=== PATIENT | female | born 1990 ===

== ENCOUNTER 2019-10-31 11:59 | Day surgery (SDC) | payer SELFPAY ==
--- NOTE | 2019-10-31 12:08 | EDM.PDOC ---
ED HPI GENERAL MEDICAL PROBLEM - General Chief Complaint: Abdominal Pain Stated Complaint: POSSIBLE APPENDICITIS Time Seen by Provider: 10/31/19 12:03 Source of Information: Reports: Patient History Limitations: Reports: No Limitations - History of Present Illness INITIAL COMMENTS - FREE TEXT/NARRATIVE: HISTORY AND PHYSICAL: History of present illness: Patient is a 29-year-old female who presents to the emergency room with complaints of generalized abdominal pain that started last evening. She woke up this morning with increased pain and tenderness to the right lower quadrant. She has had nausea and vomiting associated with this. Initially she thought she could had been constipated but did have a normal bowel movement this morning. Patient denies any fever, chills, headache, change in vision, syncope or near syncope. Denies any chest pain, back pain, shortness of breath or cough. Denies any vaginal bleeding/discharge, diarrhea, constipation or dysuria. Has not noted any blood in urine or stool. Denies any chance of . Patient has been eating and drinking appropriately. No recent travel, other family members in the house are not ill. Review of systems: As per history of present illness and below otherwise all systems reviewed and negative. Past medical history: As per history of present illness and as reviewed below otherwise noncontributor y. Surgical history: As per history of present illness and as reviewed below otherwise noncontributory. Social history: See social history for further information Family history: As per history of present illness and as reviewed below otherwise noncontributory. Physical exam: General: Well-developed and well-nourished 29-year-old female. Alert and oriented. Nontoxic-appearing and in no acute distress. Vital signs are stable and have been reviewed by me. HEENT: Atraumatic, normocephalic, pupils equal and reactive bilaterally, negative for conjunctival pallor or scleral icterus, mucous membranes moist, TMs normal bilaterally, throat clear, neck supple, nontender, trachea midline. No drooling or trismus noted. No meningeal signs. No hot potato voice noted. Lungs: Clear to auscultation, breath sounds equal bilaterally, chest nontender. Heart: S1S2, regular rate and rhythm without overt murmur Abdomen: Soft, nondistended, generalized tenderness in all 4 quadrants. Does have rebound tenderness in the right lower quadrant. Negative for masses or hepatosplenomegaly. Negative for costovertebral tenderness. Pelvis: Stable nontender. Skin: Intact, warm, dry. No lesions or rashes noted. Extremities: Atraumatic, moves all extremities per self without difficulty or deficits, negative for cords or calf pain. Neurovascular unremarkable. Neuro: Awake, alert, oriented. Cranial nerves II through XII unremarkable. Cerebellum unremarkable. Motor and sensory unremarkable throughout. Exam nonfocal. Notes: Mildly prominent size of the appendix measuring 1.1 cm. Minimal inflammatory changes are seen around the portion of the appendix correlate with appendicitis. Appendicolith is felt to be present. Small amount of fluid within [id number] most likely physiologic. She does have a leukocytosis of 18. The general surgeon, , has been consulted on this case. 1415: Dr Hernandez here to evaluate patient. Requests Mefoxin 2gm IV. Patient to same day surgery -pending surgery with Mary Diagnostics: CBC, CMP, UA, urine , lipase, CT abdomen and pelvis Therapeutics: IV fluid, Zofran, morphine, Mefoxin Impression: Appendicitis Plan: To OR for surgery Definitive disposition and diagnosis as appropriate pending reevaluation and review of above. abdomen Pain Score (Numeric/FACES): 8 - Related Data Allergies Allergy/AdvReac Type Severity Reaction Status Date / Time codeine Allergy Rash Verified 10/31/19 12:09 Home Meds: Home Meds Calcium Carbonate [Tums] 1 tab.chew CHEW ASDIRECTED PRN 10/31/19 [History] ED ROS GENERAL - Review of Systems Review Of Systems: Comprehensive ROS is negative, except as noted in HPI. ED EXAM, RENAL/ - Physical Exam Exam: See Below (See dictation) Course - Vital Signs Last Recorded V/S: Last Vital Signs Temp 97.7 F 10/31/19 13:38 Pulse 98 10/31/19 13:38 Resp 14 10/31/19 13:38 BP 104/62 10/31/19 13:38 Pulse Ox 100 10/31/19 13:38 - Orders/Labs/Meds Orders: Active Orders 24 hr Category Date Time Status Patient Status [ADT] Stat ADT 10/31/19 14:08 Active Verify Patient Consent Obtain [RC] ASDIRECTED Care 10/31/19 15:00 Active Lactated Ringers [Ringers, Lactated] 1,000 ml Med 10/31/19 15:00 Active IV ASDIRECTED Medication Orders Lactated Ringer's (Ringers, Lactated) 1,000 mls @ 150 mls/hr IV ASDIRECTED VALENTIN Labs: Laboratory Tests 10/31/19 10/31/19 10/31/19 Range/Units 12:12 12:12 12:27 WBC 18.32 H (4.0-11.0) K/uL RBC 4.26 L (4.30-5.90) M/uL Hgb 12.6 (12.0-16.0) g/dL Hct 38.2 (36.0-46.0) % MCV 89.7 (80.0-98.0) fL MCH 29.6 (27.0-32.0) pg MCHC 33.0 (31.0-37.0) g/dL RDW Std Deviation 41.3 (28.0-62.0) fl RDW Coeff of Indra 13 (11.0-15.0) % Plt Count 267 (150-400) K/uL MPV 10.70 (7.40-12.00) fL Neut % (Auto) 91.3 H (48.0-80.0) % Lymph % (Auto) 5.5 L (16.0-40.0) % [place] % (Auto) 3.1 (0.0-15.0) % Eos % (Auto) 0.0 (0.0-7.0) % Baso % (Auto) 0.1 (0.0-1.5) % Neut # (Auto) 16.7 H (1.4-5.7) K/uL Lymph # (Auto) 1.0 (0.6-2.4) K/uL [place] # (Auto) 0.6 (0.0-0.8) K/uL Eos # (Auto) 0.0 (0.0-0.7) K/uL Baso # (Auto) 0.0 (0.0-0.1) K/uL Nucleated RBC % 0.0 /100WBC Nucleated RBCs # 0 K/uL Sodium (136-145) mmol/L Potassium (3.5-5.1) mmol/L Chloride (98-107) mmol/L Carbon Dioxide (21.0-32.0) mmol/L BUN (7.0-18.0) mg/dL Creatinine (0.6-1.0) mg/dL Est Cr Clr Drug Dosing mL/min Estimated GFR (MDRD) ml/min Glucose (74-106) mg/dL Calcium (8.5-10.1) mg/dL Total Bilirubin (0.2-1.0) mg/dL AST (15-37) IU/L ALT (14-63) IU/L Alkaline Phosphatase (46-116) U/L Total Protein (6.4-8.2) g/dL Albumin (3.4-5.0) g/dL Globulin (2.6-4.0) g/dL Albumin/Globulin Ratio (0.9-1.6) Lipase (73-393) U/L Urine Color YELLOW Urine Appearance CLEAR Urine pH 7.0 (5.0-8.0) Ur Specific [place] 1.025 (1.001-1.035) Urine Protein NEGATIVE (NEGATIVE) mg/dL Urine Glucose (UA) NEGATIVE (NEGATIVE) mg/dL Urine Ketones NEGATIVE (NEGATIVE) mg/dL Urine Occult Blood TRACE-INTACT H (NEGATIVE) Urine Nitrite NEGATIVE (NEGATIVE) Urine Bilirubin NEGATIVE (NEGATIVE) Urine Urobilinogen 0.2 (<2.0) EU/dL Ur Leukocyte Esterase NEGATIVE (NEGATIVE) U Hyaline Cast (Auto) 0-2 (0-2/LPF) Urine RBC 2-5 (0-2/HPF) Urine WBC 0-1 (0-5/HPF) Ur Squamous Epith Cells MODERATE Urine Bacteria RARE (NEGATIVE) RBC Casts 0-1 (NEGATIVE) Urine Mucus HEAVY (NONE-MOD) Urine HCG, Qual NEGATIVE (NEGATIVE) SARS-CoV-2 RNA (RT-PCR) (NEGATIVE) 10/31/19 10/31/19 Range/Units 12:27 14:24 WBC (4.0-11.0) K/uL RBC (4.30-5.90) M/uL Hgb (12.0-16.0) g/dL Hct (36.0-46.0) % MCV (80.0-98.0) fL MCH (27.0-32.0) pg MCHC (31.0-37.0) g/dL RDW Std Deviation (28.0-62.0) fl RDW Coeff of Indra (11.0-15.0) % Plt Count (150-400) K/uL MPV (7.40-12.00) fL Neut % (Auto) (48.0-80.0) % Lymph % (Auto) (16.0-40.0) % [place] % (Auto) (0.0-15.0) % Eos % (Auto) (0.0-7.0) % Baso % (Auto) (0.0-1.5) % Neut # (Auto) (1.4-5.7) K/uL Lymph # (Auto) (0.6-2.4) K/uL [place] # (Auto) (0.0-0.8) K/uL Eos # (Auto) (0.0-0.7) K/uL Baso # (Auto) (0.0-0.1) K/uL Nucleated RBC % /100WBC Nucleated RBCs # K/uL Sodium 138 (136-145) mmol/L Potassium 3.9 (3.5-5.1) mmol/L Chloride 102 (98-107) mmol/L Carbon Dioxide 25.0 (21.0-32.0) mmol/L BUN 12 (7.0-18.0) mg/dL Creatinine 0.9 (0.6-1.0) mg/dL Est Cr Clr Drug Dosing 88.82 mL/min Estimated GFR (MDRD) > 60.0 ml/min Glucose 128 H (74-106) mg/dL Calcium 9.2 (8.5-10.1) mg/dL Total Bilirubin 0.3 (0.2-1.0) mg/dL AST 16 (15-37) IU/L ALT 13 L (14-63) IU/L Alkaline Phosphatase 82 (46-116) U/L Total Protein 7.4 (6.4-8.2) g/dL Albumin 4.1 (3.4-5.0) g/dL Globulin 3.3 (2.6-4.0) g/dL Albumin/Globulin Ratio 1.2 (0.9-1.6) Lipase 54 L (73-393) U/L Urine Color Urine Appearance Urine pH (5.0-8.0) Ur Specific [place] (1.001-1.035) Urine Protein (NEGATIVE) mg/dL Urine Glucose (UA) (NEGATIVE) mg/dL Urine Ketones (NEGATIVE) mg/dL Urine Occult Blood (NEGATIVE) Urine Nitrite (NEGATIVE) Urine Bilirubin (NEGATIVE) Urine Urobilinogen (<2.0) EU/dL Ur Leukocyte Esterase (NEGATIVE) U Hyaline Cast (Auto) (0-2/LPF) Urine RBC (0-2/HPF) Urine WBC (0-5/HPF) Ur Squamous Epith Cells Urine Bacteria (NEGATIVE) RBC Casts (NEGATIVE) Urine Mucus (NONE-MOD) Urine HCG, Qual (NEGATIVE) SARS-CoV-2 RNA (RT-PCR) NEGATIVE (NEGATIVE) Meds: Medications Generic Name Dose Route Start Last Admin Trade Name Freq PRN Reason Stop Dose Admin Lactated Ringer's 1,000 mls @ 150 mls/hr 10/31/19 15:00 Ringers, Lactated IV ASDIRECTED VALENTIN Discontinued Medications Generic Name Dose Route Start Last Admin Trade Name Freq PRN Reason Stop Dose Admin Sodium Chloride 1,000 mls @ 999 mls/hr 10/31/19 12:17 10/31/19 12:33 Normal Saline IV 10/31/19 13:17 999 mls/hr STAT ONE Administration Cefoxitin Sodium 2 gm/ Premix 50 mls @ 100 mls/hr 10/31/19 14:12 10/31/19 14:19 IV 10/31/19 14:41 100 mls/hr ONETIME ONE Administration Morphine Sulfate 2 mg 10/31/19 12:17 10/31/19 12:34 Morphine IVPUSH 10/31/19 12:18 2 mg ONETIME ONE Administration Morphine Sulfate 2 mg 10/31/19 14:07 10/31/19 14:19 Morphine IVPUSH 10/31/19 14:08 2 mg ONETIME ONE Administration Ondansetron HCl 4 mg 10/31/19 12:17 10/31/19 12:33 Zofran IVPUSH 10/31/19 12:18 4 mg ONETIME ONE Administration Departure - Departure Time of Disposition: 15:49 Disposition: Still A Patient 30 Clinical Impression: Appendicitis Qualifiers: Appendicitis type: acute appendicitis Acute appendicitis type: with localized peritonitis Appendicitis gangrene presence: without gangrene Appendicitis perforation presence: without perforation Appendicitis abscess presence: without abscess Qualified Code(s): K35.30 - Acute appendicitis with localized peritonitis, without perforation or gangrene - Discharge Information Sepsis Event Note (ED) - Focused Exam Vital Signs: Vital Signs Temp Pulse Resp BP Pulse Ox 10/31/19 13:38 97.7 F 98 14 104/62 100 10/31/19 12:03 96.8 F L 80 17 111/64 96 - My Orders Last 24 Hours: My Active Orders 10/31/19 14:08 Patient Status [ADT] Stat - Assessment/Plan Last 24 Hours: My Active Orders 10/31/19 14:08 Patient Status [ADT] Stat
[2019-10-31] MEDS ORDERED: Sodium Chloride 0.9% 1,000 ML IV ONE (12:17)
[2019-10-31] MEDS ORDERED: Ondansetron 4 MG/2 ML SDV IVPUSH ONE (12:17)
[2019-10-31] MEDS ORDERED: Morphine 2 MG/ML Syringe IVPUSH ONE ×2 (12:17→14:07)
[2019-10-31 13:08] LABS: BLOOD UREA NITROGEN,BUN 12 mg/dL (7.0-18.0); CHLORIDE,CL 102 mmol/L (98-107); GLUCOSE RANDOM 128 mg/dL (74-106); LIPASE 54 U/L (73-393); POTASSIUM,K 3.9 mmol/L (3.5-5.1); SODIUM,NA 138 mmol/L (136-145)
--- NOTE | 2019-10-31 14:00 | CT ---
CT abdomen and pelvis Technique: Multiple axial sections were obtained from above the dome of the diaphragm inferiorly through the pubic symphysis. Intravenous contrast was utilized. No oral contrast has been given. Appendix is felt to be visualized. Appendix shows evidence of an appendicolith. Appendix is prominent in size with thickness of 1.1 cm. Minimal inflammatory change is seen around a portion of the appendix. Visualized lung bases show nothing acute. Liver contains no focal abnormality. Spleen appears within normal limits. Adrenal glands show no nodule. Kidneys show symmetric contrast enhancement without hydronephrosis or mass. Pancreas appears within normal limits. Aorta shows no aneurysm. No retroperitoneal adenopathy is seen. No pelvic mass or adenopathy is noted. Small amount of free fluid within the cul-de-sac which is most likely is physiologic. Bone window settings were reviewed which shows no acute osseous finding. Impression: 1. Mildly prominent size of the appendix measuring 1.1 cm. Appendicolith felt to be present. Minimal inflammatory change seen around a portion of the appendix. Findings may represent very early appendicitis. Please correlate that this matches clinically. 2. Small amount of fluid within the cul-de-sac most likely physiologic. 3. No additional abnormality is appreciated on CT study of the abdomen and pelvis. Diagnostic code #3 This report was dictated in MDT
[2019-10-31] MEDS ORDERED: cefOXitin 2 GM in Premix Bag 1 BAG IV ONE (14:12)
--- NOTE | 2019-10-31 14:54 | PCM.PREANE ---
Preanesthetic Assessment - Anesthesia/Transfusion/Family Hx Anesthesia History: Prior Anesthesia Without Reaction Family History of Anesthesia Reaction: No Transfusion History: Unknown Intubation History: Unknown - Review of Systems General: No Symptoms Pulmonary: No Symptoms Cardiovascular: No Symptoms Gastrointestinal: No Symptoms Neurological: No Symptoms Other: Reports: None - Physical Assessment Vital Signs: Last Vital Signs Temp 36.5 C 10/31/19 13:38 Pulse 98 10/31/19 13:38 Resp 14 10/31/19 13:38 BP 104/62 10/31/19 13:38 Pulse Ox 100 10/31/19 13:38 Height: 6 ft 3 in Weight: 61 kg ASA Class: 2E Mental Status: Alert & Oriented x3 Airway Class: Mallampati = 1 Dentition: Reports: Normal Dentition Thyro-Mental Finger Breadths: 3 Mouth Opening Finger Breadths: 3 ROM/Head Extension: Full Lungs: Clear to Auscultation, Normal Respiratory Effort Cardiovascular: Regular Rate, Regular Rhythm - Lab Values: Laboratory Last Values WBC 18.32 K/uL (4.0-11.0) H 10/31/19 12:27 RBC 4.26 M/uL (4.30-5.90) L 10/31/19 12:27 Hgb 12.6 g/dL (12.0-16.0) 10/31/19 12:27 Hct 38.2 % (36.0-46.0) 10/31/19 12:27 MCV 89.7 fL (80.0-98.0) 10/31/19 12:27 MCH 29.6 pg (27.0-32.0) 10/31/19 12:27 MCHC 33.0 g/dL (31.0-37.0) 10/31/19 12:27 RDW Std Deviation 41.3 fl (28.0-62.0) 10/31/19 12:27 RDW Coeff of Indra 13 % (11.0-15.0) 10/31/19 12:27 Plt Count 267 K/uL (150-400) 10/31/19 12:27 MPV 10.70 fL (7.40-12.00) 10/31/19 12:27 Neut % (Auto) 91.3 % (48.0-80.0) H 10/31/19 12:27 Lymph % (Auto) 5.5 % (16.0-40.0) L 10/31/19 12: [place] % (Auto) 3.1 % (0.0-15.0) 10/31/19 12: Eos % (Auto) 0.0 % (0.0-7.0) 10/31/19 12: Baso % (Auto) 0.1 % (0.0-1.5) 10/31/19 12: Neut # (Auto) 16.7 K/uL (1.4-5.7) H 10/31/19 12: Lymph # (Auto) 1.0 K/uL (0.6-2.4) 10/31/19 12: [place] # (Auto) 0.6 K/uL (0.0-0.8) 10/31/19 12: Eos # (Auto) 0.0 K/uL (0.0-0.7) 10/31/19 12: Baso # (Auto) 0.0 K/uL (0.0-0.1) 10/31/19 12: Nucleated RBC % 0.0 /100WBC 10/31/19 12: Nucleated RBCs # 0 K/uL 10/31/19 12: Sodium 138 mmol/L (136-145) 10/31/19 12: Potassium 3.9 mmol/L (3.5-5.1) 10/31/19 12: Chloride 102 mmol/L (98-107) 10/31/19 12: Carbon Dioxide 25.0 mmol/L (21.0-32.0) 10/31/19 12: BUN 12 mg/dL (7.0-18.0) 10/31/19 12: Creatinine 0.9 mg/dL (0.6-1.0) 10/31/19 12: Est Cr Clr Drug Dosing 88.82 mL/min 10/31/19 12:27 Estimated GFR (MDRD) > 60.0 ml/min 10/31/19 12: Glucose 128 mg/dL (74-106) H 10/31/19 12:27 Calcium 9.2 mg/dL (8.5-10.1) 10/31/19 12:27 Total Bilirubin 0.3 mg/dL (0.2-1.0) 10/31/19 12:27 AST 16 IU/L (15-37) 10/31/19 12:27 ALT 13 IU/L (14-63) L 10/31/19 12:27 Alkaline Phosphatase 82 U/L (46-116) 10/31/19 12:27 Total Protein 7.4 g/dL (6.4-8.2) 10/31/19 12:27 Albumin 4.1 g/dL (3.4-5.0) 10/31/19 12:27 Globulin 3.3 g/dL (2.6-4.0) 10/31/19 12:27 Albumin/Globulin Ratio 1.2 (0.9-1.6) 10/31/19 12: Lipase 54 U/L (73-393) L 10/31/19 12:27 Urine Color YELLOW 10/31/19 12:12 Urine Appearance CLEAR 10/31/19 12:12 Urine pH 7.0 (5.0-8.0) 10/31/19 12:12 Ur Specific [place] 1.025 (1.001-1.035) 10/31/19 12:12 Urine Protein NEGATIVE mg/dL (NEGATIVE) 10/31/19 12:12 Urine Glucose (UA) NEGATIVE mg/dL (NEGATIVE) 10/31/19 12:12 Urine Ketones NEGATIVE mg/dL (NEGATIVE) 10/31/19 12:12 Urine Occult Blood TRACE-INTACT (NEGATIVE) H 10/31/19 12:12 Urine Nitrite NEGATIVE (NEGATIVE) 10/31/19 12:12 Urine Bilirubin NEGATIVE (NEGATIVE) 10/31/19 12:12 Urine Urobilinogen 0.2 EU/dL (<2.0) 10/31/19 12:12 Ur Leukocyte Esterase NEGATIVE (NEGATIVE) 10/31/19 12:12 U Hyaline Cast (Auto) 0-2 (0-2/LPF) 10/31/19 12:12 Urine RBC 2-5 (0-2/HPF) 10/31/19 12:12 Urine WBC 0-1 (0-5/HPF) 10/31/19 12:12 Ur Squamous Epith Cells MODERATE 10/31/19 12:12 Urine Bacteria RARE (NEGATIVE) 10/31/19 12:12 RBC Casts 0-1 (NEGATIVE) 10/31/19 12:12 Urine Mucus HEAVY (NONE-MOD) 10/31/19 12:12 Urine HCG, Qual NEGATIVE (NEGATIVE) 10/31/19 12:12 SARS-CoV-2 RNA (RT-PCR) NEGATIVE (NEGATIVE) 10/31/19 14:24 - Allergies Allergies/Adverse Reactions: Allergies Allergy/AdvReac Type Severity Reaction Status Date / Time codeine Allergy Rash Verified 10/31/19 12:09 - Blood Blood Available: No - Anesthesia Plan Pre-Op Medication Ordered: None - Acknowledgements Anesthesia Type Planned: General Anesthesia Pt an Appropriate Candidate for the Planned Anesthesia: Yes Alternatives and Risks of Anesthesia Discussed w Pt/Guardian: Yes Pt/Guardian Understands and Agrees with Anesthesia Plan: Yes PreAnesthesia Questionnaire HEENT History: Reports: None Gastrointestinal History: Reports: Other (See Below) (acute appendicitis at present time) 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 [No Known Home Meds] 10/31/19 [History] - CURRENT (IN HOUSE) MEDS Current Meds: Current Medications Discontinued Medications Sodium Chloride (Normal Saline) 1,000 mls @ 999 mls/hr IV STAT ONE Stop: 10/31/19 13:17 Last Admin: 10/31/19 12:33 Dose: 999 mls/hr Documented by: Cefoxitin Sodium 2 gm/ Premix 50 mls @ 100 mls/hr IV ONETIME ONE Stop: 10/31/19 14:41 Last Admin: 10/31/19 14:19 Dose: 100 mls/hr Documented by: Morphine Sulfate (Morphine) 2 mg IVPUSH ONETIME ONE Stop: 10/31/19 12:18 Last Admin: 10/31/19 12:34 Dose: 2 mg Documented by: Morphine Sulfate (Morphine) 2 mg IVPUSH ONETIME ONE Stop: 10/31/19 14:08 Last Admin: 10/31/19 14:19 Dose: 2 mg Documented by: Ondansetron HCl (Zofran) 4 mg IVPUSH ONETIME ONE Stop: 10/31/19 12:18 Last Admin: 10/31/19 12:33 Dose: 4 mg Documented by:
[2019-10-31] MEDS ORDERED: Lactated Ringers 1,000 ML IV SCH (15:00)
--- NOTE | 2019-10-31 15:08 | PCM.SN.2 ---
- Free Text/Narrative Note: pt seen, chart reviewed; rb dw pt re bleeding/infection/damage to nearby organs/abd abscess; pt concurred and proceed; lap vs open appendectomy; ivf/iv abx and get ready for surgery ;[id number]
[2019-10-31] MEDS ORDERED: Propofol 200 MG/20 ML SDV ONE (16:52)
[2019-10-31] MEDS ORDERED: fentaNYL 250 MCG/5 ML SDV ONE (16:52)
[2019-10-31] MEDS ORDERED: Midazolam 1 MG/ML 2 ML SDV ONE (16:52)
[2019-10-31] MEDS ORDERED: Ondansetron 4 MG/2 ML SDV ONE (16:55)
[2019-10-31] MEDS ORDERED: Succinylcholine/Sod PF 100 MG/5 ML SYRINGE IV ONE (16:55)
[2019-10-31] MEDS ORDERED: Glycopyrrolate 0.2 MG/ML SDV ONE (16:55)
[2019-10-31] MEDS ORDERED: Sugammadex Sodium 200 MG/2 ML VIAL ONE (17:01)
[2019-10-31] MEDS ORDERED: Dexamethasone 4 MG/ML 5 ML MDV ONE (17:02)
[2019-10-31] MEDS ORDERED: Rocuronium Bromide 50 MG/5 ML Syringe ONE (17:25)
[2019-10-31] MEDS ORDERED: Ketorolac 30 MG/ML SDV ONE (17:25)
[2019-10-31] MEDS ORDERED: Bupivacaine 0.25% 10 ML SDV ONE (17:29)
[2019-10-31] MEDS ORDERED: fentaNYL 100 MCG/2 ML SDV IVPUSH PRN (19:15)
[2019-10-31] MEDS ORDERED: Acetaminophen 1,000 MG in Premix Bag 1 BAG IV PRN (19:15)
[2019-10-31] MEDS ORDERED: Iopamidol 755 Mg/ML 100 ML Bottle IVPUSH STA (19:19)
[2019-10-31] MEDS ORDERED: Ondansetron 4 MG/2 ML SDV IVPUSH PRN (19:24)
[2019-10-31] MEDS ORDERED: Acetaminophen/oxyCODONE 325-5 MG Tab PO PRN (19:24)
[2019-10-31] MEDS ORDERED: Morphine 4 MG/ML Syringe IVPUSH PRN (19:25)
--- NOTE | 2019-10-31 19:32 | PCM.OPNOTE ---
- General Post-Op/Procedure Note Date of Surgery/Procedure: 10/31/19 Operative Procedure(s): lap appy Findings: appendicitis suppurativa, gross perf not observed; [id number] Pre Op Diagnosis: acute appendicitis Post-Op Diagnosis: Same Anesthesia Technique: General ET Tube Primary Surgeon: Micheal Hernadnez Pathology: sent Complications: None Condition: Stable
--- NOTE | 2019-10-31 19:37 | PCM.POSTAN ---
POST ANESTHESIA ASSESSMENT - VITAL SIGNS Vital Signs: Last Vital Signs Temp 37.9 C 10/31/19 18:57 Pulse 102 H 10/31/19 19:32 Resp 15 10/31/19 19:32 BP 94/53 L 10/31/19 19:32 Pulse Ox 97 10/31/19 19:32 - RESPIRATORY Respiratory Status: Respiratory Rate WNL - CARDIOVASCULAR CV Status: Pulse Rate WNL - GASTROINTESTINAL GI Status: No Symptoms - POST OP HYDRATION Hydration Status: Adequate & Stable
--- NOTE | 2019-10-31 19:40 | CONS ---
DATE OF CONSULTATION: 10/31/2019 DATE OF : 1990 PRIMARY CARE PHYSICIAN: None PCP REASON FOR CONSULTATION: Consult was called, the patient was seen shortly after. Consulting question, acute appendicitis. HISTORY OF PRESENT ILLNESS: The patient is a 29-year-old lady, complained of a 24-hour history of gradual onset of periumbilical pain, subsequently migrated to the right lower quadrant. Also nausea, but no throw-up, no emesis, and also running a low-grade fever. Workup and CAT scan shows acute appendicitis. No perforation. Surgery was then consulted. The patient denied prior episode and currently pain is 10/10, and when the car stopped in front of the traffic light, the patient felt much more pain. ALLERGIES: Please refer to nursing for details. MEDICATIONS: Please refer to nursing for details. FAMILY HISTORY: No malignant hyperthermia. SOCIAL HISTORY: No tobacco or alcohol use. PHYSICAL EXAMINATION: GENERAL: A very pleasant lady and even smiled to the doctor, in no acute distress. HEENT: Normocephalic, atraumatic. Sclerae are anicteric. LUNGS: Clear to auscultation. HEART: Regular rate and rhythm. ABDOMEN: Soft, nondistended. No pulsating tender midline abdominal structure. No surgical scar. Exquisite tenderness on the McBurney point and positive Rovsing sign and no rebound tenderness. LABORATORY DATA: White count is 18.3, H and H are 12.6 and 38, platelets are 267. Sodium 138, potassium 3.9, BUN is 12, creatinine is 0.9. TBili is 0.3, AST and ALT are 16 and 13, alkaline phosphatase is 82. Lipase is 54, normal. UA completely normal, no signs or symptoms of UTI. Beta-hCG is negative. The COVID-19 is negative. CAT scan appendix is prominent in size, measured 11 mm, some inflammatory change, consistent with appendicitis. IMPRESSION: Appendicitis. Would benefit from timely surgical intervention. Risks and benefits discussed with the patient including, but not limited to, bleeding, infection, damage to the nearby organs, and abdominal abscess. The patient concurred to proceed with plan. IV fluid, IV antibiotic, and get ready for surgery. LIANS / MODL /[id number]
--- NOTE | 2019-10-31 20:19 | OR ---
SURGEON: Micheal Hernandez MD DATE OF PROCEDURE: 10/31/2019 PREOPERATIVE DIAGNOSIS: Acute appendicitis. POSTOPERATIVE DIAGNOSIS: Acute appendicitis. PROCEDURE PERFORMED: Laparoscopic appendectomy. PRIMARY SURGEON: Micheal Hernandez MD COMPLICATIONS: None. FINDINGS: Appendix was totally swollen, indurated, and full of pus, consistent with appendicitis suppurativa. Gross perforation not observed. A piece of Surgicel was inserted for hemostasis. DESCRIPTION OF PROCEDURE: The patient was taken to the operating room and placed in the supine position. Following induction of general endotracheal anesthesia, the patient's abdomen was prepped and draped in the sterile fashion. A time-out has been called. The patient was identified. The procedure was identified. The antibiotics were identified. The procedure then proceeded. The abdomen was prepped and draped in a standard fashion. After assessment of appropriate landmarks, a 12 millimeter trocar was inserted supraumbilically using Optiview and pneumoperitoneum was then achieved. This was followed with placement of 5 millimeter port in the right upper quadrant and another 5 millimeter port infraumbilically. The camera was inserted supraumbilical site and two laparoscopic [place] retractors were then inserted through the other two sites. Following the cecum, the appendix was located. The appendix was then lifted up, and using a GI stapler the appendix was amputated at the base. And using the GI stapler, the mesoappendix was then amputated. The appendix was retrieved by an endoscopic bag and sent for pathologist. This was then followed by re-insertion of the camera to examine the staple line, and hemostasis. The trocars were then removed. The umbilical site was closed with 2-0 Vicryl deep stitch and 4-0 Vicryl and Dermabond; the other 2 5 mm port sites were closed with 4-0 Vicryl and Dermabond. The patient was then awakened, extubated, and transferred to the recovery room in hemodynamically stable condition. Prior to closing, sponge count and instrument count was correct. Intraoperative findings as dictated above. After the surgery was done, the skin was approximated by the skin staple. Dr. Hernandez was present throughout the whole procedure. As always, thank you for the kind referral. ANGÉLICA / FREDDY /[id number]
[2019-10-31] MEDS: Lactated Ringers 1,000 ML IV SCH (20:46)
[2019-11-01] MEDS: Lactated Ringers 1,000 ML IV SCH (04:47)
--- NOTE | 2019-11-01 07:38 | PCM48HPAN ---
Post Anesthesia Note - EVALUATION WITHIN 48HRS OF ANESTHETIC Vital Signs in Normal Range: Yes Patient Participated in Evaluation: Yes Respiratory Function Stable: Yes Airway Patent: Yes Cardiovascular Function Stable: Yes Hydration Status Stable: Yes Pain Control Satisfactory: Yes Nausea and Vomiting Control Satisfactory: Yes Mental Status Recovered: Yes Vital Signs: Last Vital Signs Temp 37.1 C 11/01/19 05:53 Pulse 81 11/01/19 05:53 Resp 18 11/01/19 05:53 BP 90/55 L 11/01/19 05:53 Pulse Ox 97 11/01/19 05:53 - COMMENTS/OBSERVATIONS Free Text/Narrative:: Doing well.
[2019-11-01] MEDS ORDERED: Amoxicillin/Clavulanate K 875-125 MG Tab PO SCH (21:00)
== END 2019-11-01 11:15 | disposition home or self-care (01) ==
LOC: MW.ED 11:59 → MW.SDS 14:19 → MW.MS 18:30 → MW.SDS 11-01 11:15
PROVIDERS: ATTEND Surgery
DX: K35.80 Unspecified acute appendicitis (principal); Z88.5 Allergy status to narcotic agent; Z87.891 Personal history of nicotine dependence
CPT/HCPCS: 36415; 44970; 74177; 80053; 81001; 81025; 83690; 85025; 87635; 96361; 96365; 96375; 96376; 99284; A9270; C1776; J0131; J0694; J1885; J2001; J2250; J2270; J2405; J2704; J3010; J3490; J7030; J7120; Q9967; 88304; J0330; J1100; U0002

== ENCOUNTER 2020-04-27 12:44 | Emergency (ER) | payer BC, MEDICAID ==
[2020-04-27] MEDS ORDERED: Sodium Chloride 0.9% 2.5 ML Syringe FLUSH PRN (12:47)
[2020-04-27] MEDS ORDERED: Sodium Chloride 0.9% 10 ML Syringe FLUSH PRN (12:47)
--- NOTE | 2020-04-27 12:49 | EDM.PDOC ---
ED HPI GENERAL MEDICAL PROBLEM - General Chief Complaint: Abdominal Pain Stated Complaint: SEVERE PAIN IN SIDE AND LOWER BACK Time Seen by Provider: 04/27/20 12:47 Source of Information: Reports: Patient History Limitations: Reports: No Limitations - History of Present Illness INITIAL COMMENTS - FREE TEXT/NARRATIVE: HISTORY AND PHYSICAL: History of present illness: Patient is a 29-year-old female who presents to the ED today with concern of sudden onset of left flank pain that began this morning at around 8 AM. Patient states that initially the pain was subtle but then while she was at work she had a sudden increase in sharp left-sided abdominal pain. Patient states by the time she was able to get home, the pain was so significant, she could not sit still and had 1 episode of vomiting. Patient states that she took 1 g of Tylenol and her significant other brought her to the emergency room for further evaluation. Patient states while she was in the check-in process she had a warming sensation of her left flank pain and then had sudden improvement of her symptoms. Patient states that her abdominal pain completely resolved before she was brought back to the exam room. Patient states at this time she is not having any symptoms. Patient states she has a history of appendectomy but denies any other health history. Patient states that her last menstrual cycle was 1 week ago and was normal for her. Patient denies any other associated symptoms. Patient denies fever, chills, chest pain, shortness of breath, or cough. Denies headache, neck stiff ness, change in vision, syncope, or near syncope. Denies nausea, vomiting, abdominal pain, diarrhea, constipation, or dysuria. Has not noted any blood in urine or stool. Patient has been eating and drinking nona ropriately. Review of systems: As per history of present illness and below otherwise all systems reviewed and negative. Past medical history: As per history of present illness and as reviewed below otherwise noncontributory. Surgical history: As per history of present illness and as reviewed below otherwise noncontributory. Social history: See social history for further information Family history: As per history of present illness and as reviewed below otherwise noncontributory. Physical exam: General: Patient is alert, oriented, and in no acute distress. Patient sitting comfortably on exam table. Vitals stable and reviewed by me. HEENT: Atraumatic, normocephalic, pupils equal and reactive bilaterally, negative for conjunctival pallor or scleral icterus, mucous membranes moist, TMs normal bilaterally, throat clear, neck supple, nontender, trachea midline. No drooling or trismus noted. No meningeal signs. No hot potato voice noted. Lungs: Clear to auscultation, breath sounds equal bilaterally, chest nontender. Heart: S1S2, regular rate and rhythm without overt murmur Abdomen: Soft, nondistended, nontender. Negative for masses or hepatosplenomegaly. Negative for costovertebral tenderness. Pelvis: Stable nontender. Genitourinary: Deferred. Rectal: Deferred. Skin: Intact, warm, dry. No lesions or rashes noted. Extremities: Atraumatic, negative for cords or calf pain. Neurovascular unremarkable. Neuro: Awake, alert, oriented. Cranial nerves II through XII unremarkable. Cerebellum unremarkable. Motor and sensory unremarkable throughout. Exam nonfocal. Notes: Upon initial evaluation, patient is comfortable, vitally stable, and nontoxic. She does not have any flank pain or abdominal pain upon my exam. Per patient's HPI, I do suspect she possibly had a kidney stone which had passed prior to my evaluation. She does have some red blood cells of her urine which is also increased my suspicion for this. She does have a few white blood cells although a negative leukocyte esterase and negative nitrite. I will give patient prophylactic antibiotics and send her urine for culture in case there is some sort of underlying infection. I did offer abdominal pelvic CT scan imaging but patient declines at this time. All risks versus benefits discussed with patient and expresses understanding. Discussed importance for follow-up with a primary care provider. Voices understanding and is agreeable to plan of care. Denies any further questions or concerns at this time. Diagnostics: CBC, CMP, UA, Lipase, Serum hcg (offered abd/pelvic CT scan but patient declines), urine culture Therapeutics: Saline lock Prescription: Bactrim DS Impression: Left flank pain, resolved Hematuria Plan: 1. Take medication as prescribed. You can alternate ibuprofen and Tylenol as directed for pain and discomfort. 2. Follow-up the primary care provider as discussed. Return to the ED as needed and as discussed. Definitive disposition and diagnosis as appropriate pending reevaluation and review of above. 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 ED EXAM, GENERAL - Physical Exam Exam: See Below (see dictation) Course - Vital Signs Last Recorded V/S: Last Vital Signs Temp 96.5 F L 04/27/20 13:08 Pulse 72 04/27/20 13:08 Resp 17 04/27/20 13:08 BP 99/66 04/27/20 13:08 Pulse Ox 97 04/27/20 13:08 - Orders/Labs/Meds Orders: Active Orders 24 hr Category Date Time Status Sodium Chloride 0.9% [Saline Flush] Med 04/27/20 12:47 Active 10 ml FLUSH ASDIRECTED PRN Sodium Chloride 0.9% [Saline Flush] Med 04/27/20 12:47 Active 2.5 ml FLUSH ASDIRECTED PRN Saline Lock Insert [OM.PC] Stat Oth 04/27/20 12:47 Ordered Medication Orders Sodium Chloride (Saline Flush) 10 ml FLUSH ASDIRECTED PRN PRN Reason: Keep Vein Open Last Admin: 04/27/20 13:25 Dose: 10 ml Documented by: [id number] Sodium Chloride (Saline Flush) 2.5 ml FLUSH ASDIRECTED PRN PRN Reason: Keep Vein Open Last Admin: 04/27/20 13:25 Dose: 2.5 ml Documented by: [id number] Labs: Laboratory Tests 04/27/20 04/27/20 04/27/20 Range/Units 12:55 13:20 13:20 WBC 10.13 (4.0-11.0) K/uL RBC 4.09 L (4.30-5.90) M/uL Hgb 12.1 (12.0-16.0) g/dL Hct 37.4 (36.0-46.0) % MCV 91.4 (80.0-98.0) fL MCH 29.6 (27.0-32.0) pg MCHC 32.4 (31.0-37.0) g/dL RDW Std Deviation 43.8 (28.0-62.0) fl RDW Coeff of Indra 13 (11.0-15.0) % Plt Count 251 (150-400) K/uL MPV 10.80 (7.40-12.00) fL Neut % (Auto) 85.0 H (48.0-80.0) % Lymph % (Auto) 10.0 L (16.0-40.0) % [place] % (Auto) 4.5 (0.0-15.0) % Eos % (Auto) 0.3 (0.0-7.0) % Baso % (Auto) 0.2 (0.0-1.5) % Neut # (Auto) 8.6 H (1.4-5.7) K/uL Lymph # (Auto) 1.0 (0.6-2.4) K/uL [place] # (Auto) 0.5 (0.0-0.8) K/uL Eos # (Auto) 0.0 (0.0-0.7) K/uL Baso # (Auto) 0.0 (0.0-0.1) K/uL Nucleated RBC % 0.0 /100WBC Nucleated RBCs # 0 K/uL Sodium 140 (136-145) mmol/L Potassium 4.0 (3.5-5.1) mmol/L Chloride 105 (98-107) mmol/L Carbon Dioxide 25.7 (21.0-32.0) mmol/L BUN 13 (7.0-18.0) mg/dL Creatinine 0.9 (0.6-1.0) mg/dL Est Cr Clr Drug Dosing 76.30 mL/min Estimated GFR (MDRD) > 60.0 ml/min Glucose 96 (74-106) mg/dL Calcium 8.7 (8.5-10.1) mg/dL Total Bilirubin 0.4 (0.2-1.0) mg/dL AST 14 L (15-37) IU/L ALT 16 (14-63) IU/L Alkaline Phosphatase 71 (46-116) U/L Total Protein 6.8 (6.4-8.2) g/dL Albumin 3.6 (3.4-5.0) g/dL Globulin 3.2 (2.6-4.0) g/dL Albumin/Globulin Ratio 1.1 (0.9-1.6) Lipase 60 L (73-393) U/L HCG, Qual (NEG) Urine Color DARK YELLOW Urine Appearance CLEAR Urine pH 5.5 (5.0-8.0) Ur Specific [place] >= 1.030 (1.001-1.035) Urine Protein NEGATIVE (NEGATIVE) mg/dL Urine Glucose (UA) NEGATIVE (NEGATIVE) mg/dL Urine Ketones NEGATIVE (NEGATIVE) mg/dL Urine Occult Blood MODERATE H (NEGATIVE) Urine Nitrite NEGATIVE (NEGATIVE) Urine Bilirubin NEGATIVE (NEGATIVE) Urine Urobilinogen 0.2 (<2.0) EU/dL Ur Leukocyte Esterase NEGATIVE (NEGATIVE) Urine RBC 5-10 (0-2/HPF) Urine WBC 2-4 (0-5/HPF) Ur Epithelial Cells MODERATE (NONE-FEW) Urine Bacteria FEW (NEGATIVE) 12/20/20 Range/Units 13:20 WBC (4.0-11.0) K/uL RBC (4.30-5.90) M/uL Hgb (12.0-16.0) g/dL Hct (36.0-46.0) % MCV (80.0-98.0) fL MCH (27.0-32.0) pg MCHC (31.0-37.0) g/dL RDW Std Deviation (28.0-62.0) fl RDW Coeff of Indra (11.0-15.0) % Plt Count (150-400) K/uL MPV (7.40-12.00) fL Neut % (Auto) (48.0-80.0) % Lymph % (Auto) (16.0-40.0) % [place] % (Auto) (0.0-15.0) % Eos % (Auto) (0.0-7.0) % Baso % (Auto) (0.0-1.5) % Neut # (Auto) (1.4-5.7) K/uL Lymph # (Auto) (0.6-2.4) K/uL [place] # (Auto) (0.0-0.8) K/uL Eos # (Auto) (0.0-0.7) K/uL Baso # (Auto) (0.0-0.1) K/uL Nucleated RBC % /100WBC Nucleated RBCs # K/uL Sodium (136-145) mmol/L Potassium (3.5-5.1) mmol/L Chloride (98-107) mmol/L Carbon Dioxide (21.0-32.0) mmol/L BUN (7.0-18.0) mg/dL Creatinine (0.6-1.0) mg/dL Est Cr Clr Drug Dosing mL/min Estimated GFR (MDRD) ml/min Glucose (74-106) mg/dL Calcium (8.5-10.1) mg/dL Total Bilirubin (0.2-1.0) mg/dL AST (15-37) IU/L ALT (14-63) IU/L Alkaline Phosphatase (46-116) U/L Total Protein (6.4-8.2) g/dL Albumin (3.4-5.0) g/dL Globulin (2.6-4.0) g/dL Albumin/Globulin Ratio (0.9-1.6) Lipase (73-393) U/L HCG, Qual NEGATIVE (NEG) Urine Color Urine Appearance Urine pH (5.0-8.0) Ur Specific [place] (1.001-1.035) Urine Protein (NEGATIVE) mg/dL Urine Glucose (UA) (NEGATIVE) mg/dL Urine Ketones (NEGATIVE) mg/dL Urine Occult Blood (NEGATIVE) Urine Nitrite (NEGATIVE) Urine Bilirubin (NEGATIVE) Urine Urobilinogen (<2.0) EU/dL Ur Leukocyte Esterase (NEGATIVE) Urine RBC (0-2/HPF) Urine WBC (0-5/HPF) Ur Epithelial Cells (NONE-FEW) Urine Bacteria (NEGATIVE) Meds: Medications Generic Name Dose Route Start Last Admin Trade Name Freq PRN Reason Stop Dose Admin Sodium Chloride 10 ml 04/27/20 12:47 04/27/20 13:25 Saline Flush FLUSH 10 ml ASDIRECTED PRN Administration Keep Vein Open Sodium Chloride 2.5 ml 04/27/20 12:47 04/27/20 13:25 Saline Flush FLUSH 2.5 ml ASDIRECTED PRN Administration Keep Vein Open Departure - Departure Time of Disposition: 14:08 Disposition: Home, Self-Care 01 Clinical Impression: Left flank pain, Hematuria - Discharge Information Forms: ED Department Discharge Additional Instructions: The following information is given to patients seen in the emergency department who are being discharged to home. This information is to outline your options for follow-up care. We provide all patients seen in our emergency department with a follow-up referral. The need for follow-up, as well as the timing and circumstances, are variable depending upon the specifics of your emergency department visit. If you don't have a primary care physician on staff, we will provide you with a referral. We always advise you to contact your personal physician following an emergency department visit to inform them of the circumstance of the visit and for follow-up with them and/or the need for any referrals to a consulting specialist. The emergency department will also refer you to a specialist when appropriate. This referral assures that you have the opportunity for follow-up care with a specialist. All of these measure are taken in an effort to provide you with optimal care, which includes your follow-up. Under all circumstances we always encourage you to contact your private physician who remains a resource for coordinating your care. When calling for follow-up care, please make the office aware that this follow-up is from your recent emergency room visit. If for any reason you are refused follow-up, please contact the [facility] Emergency Department at and asked to speak to the emergency department charge nurse. [facility] [address] [place] [id number] [id number] 1. Take medication as prescribed. You can alternate ibuprofen and Tylenol as directed for pain and discomfort. 2. Follow-up the primary care provider as discussed. Return to the ED as needed and as discussed. Sepsis Event Note (ED) - Focused Exam Vital Signs: Vital Signs Temp Pulse Resp BP Pulse Ox 04/27/20 13:08 96.5 F L 72 17 99/66 97 - My Orders Last 24 Hours: My Active Orders 04/27/20 12:47 Sodium Chloride 0.9% [Saline Flush] 10 ml FLUSH ASDIRECTED PRN Sodium Chloride 0.9% [Saline Flush] 2.5 ml FLUSH ASDIRECTED PRN Saline Lock Insert [OM.PC] Stat - Assessment/Plan Last 24 Hours: My Active Orders 04/27/20 12:47 Sodium Chloride 0.9% [Saline Flush] 10 ml FLUSH ASDIRECTED PRN Sodium Chloride 0.9% [Saline Flush] 2.5 ml FLUSH ASDIRECTED PRN Saline Lock Insert [OM.PC] Stat
[2020-04-27 14:00] LABS: BLOOD UREA NITROGEN,BUN 13 mg/dL (7.0-18.0); CARBON DIOXIDE,CO2 25.7 mmol/L (21.0-32.0); CHLORIDE,CL 105 mmol/L (98-107); GLUCOSE RANDOM 96 mg/dL (74-106); LIPASE 60 U/L (73-393); SODIUM,NA 140 mmol/L (136-145)
== END 2020-04-27 14:25 | disposition home or self-care (01) ==
LOC: MW.ED 12:44
DX: R10.9 Unspecified abdominal pain (principal); R31.9 Hematuria, unspecified; Z88.5 Allergy status to narcotic agent
CPT/HCPCS: 36415; 80053; 81001; 83690; 84703; 85025; 87086; 99283; 99284